=== PATIENT | female | born 1975 | race Caucasian/White ===

== ENCOUNTER 2020-06-10 21:27 | Emergency (ER) | payer BC ==
[~2020-06-10] VITALS: Ht 165.1 cm; Wt 88.5 kg
[2020-06-10 21:30] VITALS: BP_SYST 142
[2020-06-10] MEDS ORDERED: ASPIRIN 81 MG TAB.CHEW PO ONE (22:00)
[2020-06-10] MEDS ORDERED: NACL 0.9% 1,000 ML IV ONE (22:45)
[2020-06-10 22:56] LABS: BASOPHILS % (AUTO) 0.5 % (0.0-2.0); BILIRUBIN,URINE NEGATIVE (NEGATIVE); BLOOD, URINE 3+ (NEGATIVE); COLOR,URINE YELLOW (YELLOW); EOSINOPHILS # (AUTO) 0.2 K/uL (0.0-0.4); EOSINOPHILS % (AUTO) 2.4 % (0.0-4.0); GLUCOSE,URINE NEGATIVE (NEGATIVE); HEMATOCRIT 38.7 % (36-48); HEMOGLOBIN 13.3 g/dL (12.0-16.0); KETONES,URINE NEGATIVE (NEGATIVE); LEUKOCYTE ESTERASE ,URINE 1+ (NEGATIVE); LYMPHOCYTES # (AUTO) 1.8 K/uL (1.0-5.5); LYMPHOCYTES % (AUTO) 22.7 % (20.5-51.5); MEAN CORPUSCULAR HEMOGLOBIN 29 pg (27-31); MEAN CORPUSCULAR HGB CONC 34 % (32-36); MEAN CORPUSCULAR VOLUME 85 fL (79.0-98.0); MONOCYTES # (AUTO) 0.6 K/uL (0.0-1.0); MONOCYTES % (AUTO) 8.3 % (1.7-9.3); NEUTROPHILS # (AUTO) 5.1 K/uL (1.8-7.7); NEUTROPHILS % (AUTO) 66.1 % (40.0-70.0); NITRITE, URINE NEGATIVE (NEGATIVE); PH,URINE 7.5 (5.0-8.0); PLATELET COUNT (AUTO) 300 K/uL (130-430); PROTEIN URINE NEGATIVE (NEGATIVE); RED BLOOD CELL COUNT(AUTO) 4.55 MIL/uL (4.2-6.2); RED CELL DISTRIBUTION WIDTH 13.1 % (9.0-15.0); UROBILINOGEN,URINE 0.2 (0.2-1.0); WHITE BLOOD COUNT (AUTO) 7.7 K/uL (4.8-10.8)
[2020-06-10 23:00] LABS: CLARITY/URINE SLIGHTLY HAZY (CLEAR)
[2020-06-10 23:15] LABS: BACTERIA,URINE MODERATE /HPF (None Seen); RBC,URINE 20-50 /HPF (0-3)
[2020-06-10 23:20] LABS: CALCIUM 8.3 mg/dL (8.4-11.0); CREATININE 0.8 mg/dL (0.55-1.30); POTASSIUM 3.2 mmol/L (3.5-5.1)
[2020-06-10 23:22] LABS: PROTHROMBIN TIME 10.7 SECS (9.5-12.5)
[2020-06-10 23:26] LABS: ALBUMIN 3.7 g/dL (3.4-4.8); TOTAL BILIRUBIN 0.7 mg/dL (0.0-1.0)
[2020-06-11] MEDS ORDERED: NITROFURANTOIN MONOHYD/M-CRYST 100 MG CAPSULE PO ONE
[2020-06-11] MEDS ORDERED: IOHEXOL 350 mgI/mL, 150 ML INFUS..BTL IV ONE (00:25)
[2020-06-11] MEDS ORDERED: POTASSIUM CHLORIDE 20 MEQ TAB.PRT.SR PO ONE (03:30)
[2020-06-11 03:35] VITALS: BP_SYST 129
[2020-06-11] MEDS ORDERED: POTASSIUM CHLORIDE 20 MEQ TAB.PRT.SR ONE (03:47)
== END 2020-06-11 03:35 | disposition home or self-care (01) ==
LOC: SED 21:27
DX: K57.92 Diverticulitis of intestine, part unspecified, without perforation or abscess without bleeding (principal); E87.6 Hypokalemia; N39.0 Urinary tract infection, site not specified; J45.909 Unspecified asthma, uncomplicated; Z88.1 Allergy status to other antibiotic agents; Z88.0 Allergy status to penicillin; Z88.5 Allergy status to narcotic agent
CPT/HCPCS: 36415; 71045; 71275; 74177; 80053; 81000; 81025; 82550; 83880; 84484; 85025; 85379; 85610; 87086; 93005; 96360; 99285; J7030; Q9967

== ENCOUNTER 2024-04-09 10:36 | Emergency (ER) | payer BC ==
[~2024-04-09] VITALS: Ht 165.1 cm; Wt 90.7 kg
[2024-04-09 10:40] VITALS: BP_SYST 134; PULSE 89; RESP 17; TEMP 96.9; O2SAT 97
[2024-04-09 11:34] LABS: BASOPHILS % (AUTO) 0.4 % (0.0-2.0); EOSINOPHILS # (AUTO) 0.1 K/uL (0.0-0.4); EOSINOPHILS % (AUTO) 0.9 % (0.0-4.0); HEMOGLOBIN 14.6 g/dL (12.0-16.0); LYMPHOCYTES # (AUTO) 1.4 K/uL (1.0-5.5); LYMPHOCYTES % (AUTO) 14.5 % (20.5-51.5); MEAN CORPUSCULAR HEMOGLOBIN 29 pg (27-31); MEAN CORPUSCULAR HGB CONC 34 % (32-36); MEAN CORPUSCULAR VOLUME 85 fL (79.0-98.0); MONOCYTES # (AUTO) 0.5 K/uL (0.0-1.0); MONOCYTES % (AUTO) 5.6 % (1.7-9.3); NEUTROPHILS # (AUTO) 7.4 K/uL (1.8-7.7); NEUTROPHILS % (AUTO) 78.6 % (40.0-70.0); PLATELET COUNT (AUTO) 270 K/uL (130-430); RED BLOOD CELL COUNT(AUTO) 5.08 MIL/uL (4.2-6.2); RED CELL DISTRIBUTION WIDTH 12.8 % (9.0-15.0); WHITE BLOOD COUNT (AUTO) 9.5 K/uL (4.8-10.8)
[2024-04-09 11:53] LABS: CALCIUM 8.6 mg/dL (8.4-11.0); CREATININE 0.68 mg/dL (0.55-1.30); POTASSIUM 3.5 mmol/L (3.5-5.1)
[2024-04-09 12:22] LABS: BILIRUBIN,URINE NEGATIVE (NEGATIVE); BLOOD, URINE 1+ (NEGATIVE); CLARITY/URINE CLEAR (CLEAR); COLOR,URINE YELLOW (YELLOW); GLUCOSE,URINE NEGATIVE (NEGATIVE); KETONES,URINE NEGATIVE (NEGATIVE); LEUKOCYTE ESTERASE ,URINE 1+ (NEGATIVE); NITRITE, URINE NEGATIVE (NEGATIVE); PH,URINE 6.5 (5.0-8.0); PROTEIN URINE NEGATIVE (NEGATIVE); UROBILINOGEN,URINE 0.2 (0.2-1.0)
[2024-04-09 12:56] LABS: BACTERIA,URINE RARE /HPF (None Seen)
[2024-04-09] MEDS ORDERED: METR-154 PO (14:01)
[2024-04-09] MEDS ORDERED: CLIN-142 PO (14:01)
[2024-04-09 14:18] VITALS: BP_SYST 170; PULSE 100; RESP 16; O2SAT 97
== END 2024-04-09 14:15 | disposition home or self-care (01) ==
LOC: SED 10:36
DX: K57.92 Diverticulitis of intestine, part unspecified, without perforation or abscess without bleeding (principal); R10.12 Left upper quadrant pain; J45.909 Unspecified asthma, uncomplicated; Z88.0 Allergy status to penicillin; Z88.1 Allergy status to other antibiotic agents; Z88.5 Allergy status to narcotic agent
CPT/HCPCS: 36415; 80048; 81000; 81001; 81015; 85025; 87086; 99284

== ENCOUNTER 2024-04-29 12:20 | Inpatient (IN) | payer BC ==
[~2024-04-29] VITALS: Ht 165.1 cm; Wt 93.9 kg
[~2024-04-29 12:20] MED LIST: CLIN-142 PO; METR-154 PO
[2024-04-29 13:02] VITALS: BP_SYST 140; PULSE 108; RESP 16; TEMP 97.6; O2SAT 97
[2024-04-29 13:50] LABS: BASOPHILS # (AUTO) 0.1 K/uL (0.0-0.2); BASOPHILS % (AUTO) 0.6 % (0.0-2.0); EOSINOPHILS # (AUTO) 0.2 K/uL (0.0-0.4); HEMATOCRIT 39.3 % (36-48); HEMOGLOBIN 13.3 g/dL (12.0-16.0); LYMPHOCYTES # (AUTO) 1.2 K/uL (1.0-5.5); LYMPHOCYTES % (AUTO) 10.7 % (20.5-51.5); MEAN CORPUSCULAR HEMOGLOBIN 30 pg (27-31); MEAN CORPUSCULAR HGB CONC 34 % (32-36); MEAN CORPUSCULAR VOLUME 89 fL (79.0-98.0); MONOCYTES # (AUTO) 0.6 K/uL (0.0-1.0); MONOCYTES % (AUTO) 5.6 % (1.7-9.3); NEUTROPHILS # (AUTO) 9.4 K/uL (1.8-7.7); NEUTROPHILS % (AUTO) 81.1 % (40.0-70.0); PLATELET COUNT (AUTO) 337 K/uL (130-430); RED BLOOD CELL COUNT(AUTO) 4.43 MIL/uL (4.2-6.2); RED CELL DISTRIBUTION WIDTH 13.7 % (9.0-15.0); WHITE BLOOD COUNT (AUTO) 11.5 K/uL (4.8-10.8)
[2024-04-29 13:53] LABS: SERUM HCG (QUALITATIVE) NEGATIVE (NEGATIVE)
[2024-04-29 13:54] LABS: PROTHROMBIN TIME 10.5 SECS (9.5-12.5)
[2024-04-29 13:59] LABS: BILIRUBIN,URINE NEGATIVE (NEGATIVE); BLOOD, URINE 2+ (NEGATIVE); COLOR,URINE YELLOW (YELLOW); GLUCOSE,URINE NEGATIVE (NEGATIVE); KETONES,URINE TRACE (NEGATIVE); LEUKOCYTE ESTERASE ,URINE NEGATIVE (NEGATIVE); NITRITE, URINE NEGATIVE (NEGATIVE); PROTEIN URINE NEGATIVE (NEGATIVE); UROBILINOGEN,URINE 0.2 (0.2-1.0)
[2024-04-29 14:03] LABS: CLARITY/URINE SLIGHTLY HAZY (CLEAR)
[2024-04-29 14:06] LABS: BACTERIA,URINE RARE /HPF (None Seen); WBC,URINE 0-3 /HPF (0-3)
[2024-04-29 14:07] LABS: MUCUS,URINE 1+ /LPF (None Seen)
[2024-04-29 14:23] LABS: ALBUMIN 3.3 g/dL (3.4-4.8); BILIRUBIN,DIRECT 0.3 mg/dL (0.0-0.3); CALCIUM 8.9 mg/dL (8.4-11.0); CREATININE 0.67 mg/dL (0.55-1.30); POTASSIUM 3.7 mmol/L (3.5-5.1); TOTAL BILIRUBIN 1.6 mg/dL (0.0-1.0); TOTAL PROTEIN, SERUM 7.2 g/dL (6.4-8.3)
[2024-04-29] MEDS ORDERED: KETOROLAC TROMETHAMINE 15 MG VIAL IVP PRN (15:30)
[2024-04-29] MEDS ORDERED: KETOROLAC TROMETHAMINE 15 MG VIAL IVP ONE (15:30)
[2024-04-29] MEDS: metroNIDAZOLE 500 mg/NS 100 ML IV ONE (15:36)
[2024-04-29] MEDS ORDERED: NORG1TAB74 PO (15:52)
[2024-04-29] MEDS ORDERED: PANT40TA45 PO (15:52)
[2024-04-29 18:00] VITALS: BP_SYST 137; PULSE 89; RESP 16; TEMP 98.2; O2SAT 98
[2024-04-29 20:00] VITALS: BP_SYST 123; PULSE 88; RESP 18; TEMP 98.2; O2SAT 98
[2024-04-29] MEDS ORDERED: ACETAMINOPHEN 650 MG SUPP.RECT RC PRN ×2 (21:00)
[2024-04-29] MEDS ORDERED: TEMAZEPAM 15 MG CAPSULE PO PRN (21:00)
[2024-04-29] MEDS ORDERED: PIPERACILLIN/TAZO 4.5 GM in D5W 100 ML IV SCH (22:00)
[2024-04-30 06:15] LABS: BASOPHILS % (AUTO) 0.4 % (0.0-2.0); EOSINOPHILS # (AUTO) 0.4 K/uL (0.0-0.4); EOSINOPHILS % (AUTO) 4.9 % (0.0-4.0); HEMATOCRIT 36.4 % (36-48); HEMOGLOBIN 12.2 g/dL (12.0-16.0); LYMPHOCYTES # (AUTO) 1.5 K/uL (1.0-5.5); LYMPHOCYTES % (AUTO) 18.4 % (20.5-51.5); MEAN CORPUSCULAR HEMOGLOBIN 30 pg (27-31); MEAN CORPUSCULAR HGB CONC 33 % (32-36); MEAN CORPUSCULAR VOLUME 89 fL (79.0-98.0); MONOCYTES # (AUTO) 0.6 K/uL (0.0-1.0); MONOCYTES % (AUTO) 7.7 % (1.7-9.3); NEUTROPHILS # (AUTO) 5.4 K/uL (1.8-7.7); NEUTROPHILS % (AUTO) 68.6 % (40.0-70.0); PLATELET COUNT (AUTO) 298 K/uL (130-430); RED BLOOD CELL COUNT(AUTO) 4.11 MIL/uL (4.2-6.2); RED CELL DISTRIBUTION WIDTH 13.5 % (9.0-15.0); WHITE BLOOD COUNT (AUTO) 7.9 K/uL (4.8-10.8)
[2024-04-30 06:44] LABS: ALBUMIN 2.8 g/dL (3.4-4.8); CALCIUM 8.7 mg/dL (8.4-11.0); CREATININE 0.66 mg/dL (0.55-1.30); POTASSIUM 3.3 mmol/L (3.5-5.1); TOTAL BILIRUBIN 1.4 mg/dL (0.0-1.0); TOTAL PROTEIN, SERUM 6.6 g/dL (6.4-8.3)
[2024-04-30] MEDS: metroNIDAZOLE 500 mg/NS 100 ML IV SCH (07:34)
[2024-04-30 07:35] LABS: ERYTHROCYTE SEDIMENTATION RATE 30 MM/HR (0-20)
[2024-04-30 08:02] VITALS: BP_SYST 127; PULSE 74; RESP 17; TEMP 97.9; O2SAT 96
[2024-04-30] MEDS ORDERED: NORGESTIMATE ETHINYL ESTRADIOL PO SCH (09:00)
[2024-04-30] MEDS: PANTOPRAZOLE SODIUM 40 MG TAB PO SCH (09:15)
[2024-04-30 10:20] VITALS: O2SAT 96
[2024-04-30 11:08] VITALS: BP_SYST 126; PULSE 94; RESP 16; TEMP 97.9; O2SAT 98
[2024-04-30 16:04] VITALS: BP_SYST 129; PULSE 90; RESP 16; TEMP 98; O2SAT 98
[2024-04-30] MEDS ORDERED: VANCOMYCIN HCL Non-Formulary 250 MG CAPSULE PO SCH (16:30)
[2024-04-30] MEDS: POTASSIUM CHLORIDE 20 MEQ TABLET.ER PO ONE (17:45)
[2024-04-30] MEDS: CHOLECALCIFEROL (VITAMIN D3) 5,000 UNIT TABLET PO SCH (17:46)
[2024-04-30] MEDS: VANCOMYCIN HCL ORAL SOLUTION 25 MG/ML, 150 ML PO SCH (17:47)
[2024-04-30] MEDS: LACTOBACILLUS RHAMNOSUS GG 1 CAP CAPSULE PO SCH (17:47)
[2024-04-30 19:00] VITALS: BP_SYST 124; PULSE 87; RESP 16; O2SAT 98
[2024-04-30 20:00] VITALS: BP_SYST 128; BP_SYST 38; PULSE 94; RESP 16; TEMP 97.8; O2SAT 98
[2024-05-01] VITALS (8 sets, daily range): BP systolic 113–138; PULSE 74–87; RESP 14–18; TEMP 97.4–98.3; O2SAT 97–100
[2024-05-01] MEDS: AZTREONAM 1 GM in NS 50 ML IV SCH (14:31)
[2024-05-02 00:30] VITALS: BP_SYST 125; PULSE 77; RESP 14; TEMP 97.2; O2SAT 98
[2024-05-02 06:34] LABS: BASOPHILS % (AUTO) 0.6 % (0.0-2.0); EOSINOPHILS # (AUTO) 0.3 K/uL (0.0-0.4); EOSINOPHILS % (AUTO) 4.6 % (0.0-4.0); HEMATOCRIT 33.8 % (36-48); HEMOGLOBIN 11.5 g/dL (12.0-16.0); LYMPHOCYTES # (AUTO) 1.7 K/uL (1.0-5.5); LYMPHOCYTES % (AUTO) 22.1 % (20.5-51.5); MEAN CORPUSCULAR HEMOGLOBIN 30 pg (27-31); MEAN CORPUSCULAR HGB CONC 34 % (32-36); MEAN CORPUSCULAR VOLUME 89 fL (79.0-98.0); MONOCYTES # (AUTO) 0.6 K/uL (0.0-1.0); MONOCYTES % (AUTO) 8.1 % (1.7-9.3); NEUTROPHILS # (AUTO) 4.9 K/uL (1.8-7.7); NEUTROPHILS % (AUTO) 64.6 % (40.0-70.0); PLATELET COUNT (AUTO) 283 K/uL (130-430); RED CELL DISTRIBUTION WIDTH 13.4 % (9.0-15.0); WHITE BLOOD COUNT (AUTO) 7.5 K/uL (4.8-10.8)
[2024-05-02 06:53] LABS: ALBUMIN 2.6 g/dL (3.4-4.8); CALCIUM 8.4 mg/dL (8.4-11.0); CREATININE 0.66 mg/dL (0.55-1.30); POTASSIUM 3.4 mmol/L (3.5-5.1); TOTAL BILIRUBIN 0.6 mg/dL (0.0-1.0)
[2024-05-02 08:12] VITALS: BP_SYST 141; PULSE 75; RESP 18; TEMP 97.5; O2SAT 99
[2024-05-02 09:50] VITALS: O2SAT 98
[2024-05-02] MEDS: ONDANSETRON HCL 4 MG/2 ML VIAL IVP PRN (12:39)
[2024-05-02 13:27] VITALS: BP_SYST 140; PULSE 77; RESP 17; TEMP 97.4; O2SAT 98
[2024-05-02] MEDS ORDERED: VANC25SO PO (17:10)
[2024-05-02] MEDS ORDERED: LACT1CAP57 PO (17:10)
[2024-05-02 18:09] VITALS: BP_SYST 134; PULSE 77; RESP 18; TEMP 97.4; O2SAT 99
[2024-05-02] MEDS: POTASSIUM CHLORIDE 20 MEQ TABLET.ER PO ONE (18:11)
[2024-05-02 18:46] VITALS: BP_SYST 134; PULSE 77; RESP 18; TEMP 97.4; O2SAT 99
[2024-05-03] MEDS ORDERED: VANC125C10 PO (16:10)
[2024-05-03] MEDS ORDERED: LACT1CAP58 PO (16:12)
== END 2024-05-02 20:04 | disposition home or self-care (01) | DRG 392 ==
LOC: SED 12:20 → SMU 15:19
PROVIDERS: ADMIT Internal Medicine; ATTEND Internal Medicine
DX: K57.32 Diverticulitis of large intestine without perforation or abscess without bleeding (principal); A04.72 Enterocolitis due to Clostridium difficile, not specified as recurrent; E44.0 Moderate protein-calorie malnutrition; N93.8 Other specified abnormal uterine and vaginal bleeding; E66.9 Obesity, unspecified; Z68.34 Body mass index [BMI] 34.0-34.9, adult; Z79.899 Other long term (current) drug therapy; Z88.8 Allergy status to other drugs, medicaments and biological substances
CPT/HCPCS: 36415; 80048; 80053; 80076; 81000; 81001; 81015; 82150; 83605; 83690; 84703; 85025; 85610; 85651; 85730; 87040; 87230; 99285; J1956; J2405; J2543; J3490; J7050; J7060

== ENCOUNTER 2024-05-27 15:59 | Emergency (ER) | payer BC ==
[~2024-05-27] VITALS: Ht 165.1 cm; Wt 92.5 kg
[~2024-05-27 15:59] MED LIST changes: -CLIN-142 PO; +LACT1CAP57 PO; +LACT1CAP58 PO; -METR-154 PO; +NORG1TAB74 PO; +VANC125C10 PO; +VANC25SO PO
[2024-05-27 16:17] VITALS: BP_SYST 179; PULSE 106; RESP 18; TEMP 98; O2SAT 99
[2024-05-27 16:37] LABS: BASOPHILS # (AUTO) 0.1 K/uL (0.0-0.2); BASOPHILS % (AUTO) 0.8 % (0.0-2.0); EOSINOPHILS # (AUTO) 0.3 K/uL (0.0-0.4); EOSINOPHILS % (AUTO) 3.6 % (0.0-4.0); HEMATOCRIT 39.7 % (36-48); HEMOGLOBIN 13.8 g/dL (12.0-16.0); LYMPHOCYTES # (AUTO) 1.5 K/uL (1.0-5.5); LYMPHOCYTES % (AUTO) 18.7 % (20.5-51.5); MEAN CORPUSCULAR HEMOGLOBIN 30 pg (27-31); MEAN CORPUSCULAR HGB CONC 35 % (32-36); MEAN CORPUSCULAR VOLUME 87 fL (79.0-98.0); MONOCYTES # (AUTO) 0.6 K/uL (0.0-1.0); MONOCYTES % (AUTO) 7.9 % (1.7-9.3); NEUTROPHILS # (AUTO) 5.4 K/uL (1.8-7.7); PLATELET COUNT (AUTO) 303 K/uL (130-430); RED BLOOD CELL COUNT(AUTO) 4.57 MIL/uL (4.2-6.2); RED CELL DISTRIBUTION WIDTH 14.2 % (9.0-15.0); WHITE BLOOD COUNT (AUTO) 7.9 K/uL (4.8-10.8)
[2024-05-27 16:47] LABS: SERUM HCG (QUALITATIVE) NEGATIVE (NEGATIVE)
[2024-05-27 16:50] LABS: PROTHROMBIN TIME 10.2 SECS (9.5-12.5)
[2024-05-27 16:51] LABS: ALANINE AMINOTRANSFERASE 24 U/L (12-78); ALBUMIN 3.6 g/dL (3.4-4.8); ANION GAP 6 (5-15); ASPARTATE AMINOTRANSFERASE 14 U/L (10-37); CALCIUM 9.1 mg/dL (8.4-11.0); CARBON DIOXIDE 29 mmol/L (23-29); CHLORIDE 105 mmol/L (98-107); CREATININE 0.95 mg/dL (0.55-1.30); GFR AFRICAN AMERICAN 81 mL/min (>90); GLUCOSE 115 mg/dL (74-106); SODIUM SERUM 140 mmol/L (136-145); TOTAL BILIRUBIN 0.8 mg/dL (0.0-1.0); TOTAL PROTEIN, SERUM 7.7 g/dL (6.4-8.3); UREA NITROGEN, BLOOD 9 mg/dL (8-21)
[2024-05-27 16:53] LABS: GFR NON AFRICAN-AMERICAN 67 mL/min (>90)
[2024-05-27 17:20] LABS: AMYLASE 27 U/L (0-100); BILIRUBIN,DIRECT 0.2 mg/dL (0.0-0.3); LIPASE 26 U/L (16-77)
[2024-05-27 17:41] LABS: ACETONE, SERUM NEGATIVE (NEGATIVE)
[2024-05-27] MEDS ORDERED: LOM2.5 PO (18:01)
[2024-05-27] MEDS ORDERED: IBUP-1969 PO (18:01)
[2024-05-27 18:21] VITALS: BP_SYST 179; PULSE 106; RESP 18; TEMP 98; O2SAT 99
== END 2024-05-27 18:21 | disposition home or self-care (01) ==
LOC: SED 15:59
DX: R19.7 Diarrhea, unspecified (principal); R10.30 Lower abdominal pain, unspecified; J45.909 Unspecified asthma, uncomplicated; Z88.0 Allergy status to penicillin; Z88.1 Allergy status to other antibiotic agents; Z88.5 Allergy status to narcotic agent; Z79.899 Other long term (current) drug therapy
CPT/HCPCS: 36415; 74018; 80048; 80076; 82009; 82150; 83605; 83690; 84703; 85025; 85610; 85730; 99284